=== PATIENT | male | born 1980 | race Caucasian/White ===

== ENCOUNTER 2018-04-09 19:08 | Emergency (ER) | payer SELFPAY ==
[2018-04-09] MEDS: HYDROCODONE/APAP (5/325) TAB PO (21:31)
== END 2018-04-10 00:15 | disposition home or self-care (01) ==
LOC: FTE 04-10 00:15
DX: S05.91XA Unspecified injury of right eye and orbit, initial encounter (principal); F17.210 Nicotine dependence, cigarettes, uncomplicated; W20.8XXA Other cause of strike by thrown, projected or falling object, initial encounter; Y92.9 Unspecified place or not applicable
CPT/HCPCS: 70450; 70480; 76536; 99285-25